=== PATIENT | male | born 1950 | race Caucasian/White ===

== ENCOUNTER 2016-11-07 09:58 | Emergency (ER) | payer MEDICARE, BC ==
[~2016-11-07] VITALS: Ht 182.9 cm; Wt 72.7 kg
[2016-11-07 10:00] VITALS: TEMP 98.2
[2016-11-07] MEDS ORDERED: MEVACOR 20M20 MG/TAB PO ×2 (10:06→10:07)
[2016-11-07] MEDS ORDERED: COUMADIN4 MG PO (10:06)
[2016-11-07] MEDS ORDERED: LOPRESSOR 225 MG/TAB PO (10:07)
[2016-11-07 10:41] LABS: HEMATOCRIT 39.1 % (42.0-52.0); HEMOGLOBIN 13.1 g/dl (13.5-18.0); MEAN CELL VOLUME 93 fl (80.0-100.0); MEAN CORPUSCULAR HEMOGLOBIN 31 pg (27.0-31.0); MEAN CORPUSCULAR HGB CONC 34 g/dl (33.0-37.0); MEAN PLATELET VOLUME 10.1 fl (7.4-10.4); PLATELET COUNT 178 K/mm3 (130-400); RED BLOOD COUNT 4.21 M/mm3 (4.20-5.60); REDCELL DISTRIBUTION WIDTH-CV 14.1 % (11.5-14.5); WHITE BLOOD COUNT 8.1 K/mm3 (4.8-10.8)
[2016-11-07 10:44] LABS: INR 3.6 (0.8-3.0); PROTHROMBIN TIME 41.1 SECONDS (9.7-12.8)
[2016-11-07 10:46] LABS: ADD PATHOLOGY DIFF REVIEW NO
[2016-11-07 10:51] LABS: ADJUSTED CALCIUM 8.5 mg/dL (8.4-10.2); ALBUMIN 3.8 gm/dL (3.5-5.0); BILIRUBIN,TOTAL 0.9 mg/dL (0.0-1.0); C-REACTIVE PROTEIN 4.4 mg/dL (0.0-0.9); CALCIUM 8.3 mg/dL (8.4-10.2); CREATININE, serum 1.01 mg/dL (0.66-1.25); POTASSIUM 3.6 mmol/L (3.4-5.0); TOTAL PROTEIN 6.3 gm/dL (6.4-8.2)
[2016-11-07 11:22] LABS: BAND 20 % (0-10); NEUTROPHILS 75 % (42.0-75.2); TOTAL CELLS COUNTED 100
[2016-11-07 11:23] LABS: PLATELET ESTIMATE NORMAL (NORMAL)
[2016-11-07 12:04] VITALS: BP 110/65; PULSE 71
== END 2016-11-07 12:04 | disposition home or self-care (01) ==
LOC: COL.ER 09:58
PROVIDERS: Family Medicine
DX: E86.0 Dehydration (principal); R53.1 Weakness; Z95.2 Presence of prosthetic heart valve; Z79.01 Long term (current) use of anticoagulants
CPT/HCPCS: J2405; J7030